=== PATIENT | female | born 1990 | race Caucasian/White ===

== ENCOUNTER 2024-09-14 06:27 | Emergency (ER) | payer MEDICAID ==
[~2024-09-14] VITALS: Ht 170.2 cm; Wt 102.3 kg
[2024-09-14 06:30] VITALS: PULSE 132; O2SAT 100
[2024-09-14 06:36] VITALS: BP 139/74; RESP 16; TEMP 98.6; O2SAT 100
[2024-09-14 07:14] LABS: CLARITY URINE TURBID (CLEAR); COLOR URINE YELLOW (YELLOW); GLUCOSE URINE NEGATIVE (NEGATIVE); KETONES URINE NEGATIVE (NEGATIVE); LEUKOCYTE ESTERASE URINE 3+ (NEGATIVE); NITRITE URINE NEGATIVE (NEGATIVE); OCCULT BLOOD URINE 3+ (NEGATIVE); PROTEIN URINE 2+ (NEGATIVE); SPECIFIC GRAVITY URINE 1.019 (1.005-1.030); UROBILINOGEN URINE 0.2 E.U./dL (0.2-1.0)
[2024-09-14 07:25] LABS: BACTERIA URINE 4+; RBC URINE 50-100 /hpf (0-2); WBC URINE TNTC /hpf (0-2)
[2024-09-14] MEDS ORDERED: NITR-87 MT (07:25)
[2024-09-14] MEDS ORDERED: PYR200 MT (07:25)
[2024-09-14 07:26] LABS: SQUAMOUS EPITHELIAL CELL URINE FEW /lpf (RARE/1+); YEAST URINE NONE SEEN
== END 2024-09-14 07:57 | disposition home or self-care (01) ==
LOC: ER 06:27
DX: N39.0 Urinary tract infection, site not specified (principal)
CPT/HCPCS: 81003; 81025; 96372; 99283